=== PATIENT | male | born 1930 | race Caucasian/White ===

== ENCOUNTER 2016-10-12 19:39 | Observation (INO) | payer OTHER ==
[2016-10-12] MEDS ORDERED: NS 500 ML IV ONE (20:02)
--- NOTE | 2016-10-12 20:06 | CPEKG ---
Heart Rate: 63 RR Interval: 952 P-R Interval: 200 QRSD Interval: 94 QT Interval: 392 QTC Interval: 402 P [place]: 49 QRS [place]: 50 T Wave [place]: 33 EKG Severity - NORMAL ECG - EKG Impression: SINUS RHYTHM Electronically Signed By: Dena Gomez 12-Oct-2016 21:19:25
--- NOTE | 2016-10-12 20:07 | EDPHY ---
H & P Time Seen by Provider: 10/12/16 19:52 HPI/ROS: CHIEF COMPLAINT: Dizzy HISTORY OF PRESENT ILLNESS: Patient is an 78-year-old male with history of hypertension who presents emergency department feeling dizzy. His symptoms started approximately 3:00 p.m.. He does not feel as though the room her ground was spinning. He had a slightly unstable gait. Patient's states that he has had mild shortness of breath for the fast 1-2 days. He has had a long standing persistent cough that is not changed. He has no chest pain. No abdominal pain. No nausea or vomiting. The patient denies focal weakness or numbness. No headache or neck pain. REVIEW OF SYSTEMS: My complete review of systems is negative except as mentioned in the HPI. Patient has decreased hearing. Past Medical/Surgical History: Includes hypertension, prostate disease Social history: The patient is . He does not smoke Smoking Status: Never smoked Physical Exam: Vitals noted GENERAL: No acute distress, alert. HEENT: Eyes normal to inspection, normal pharynx, no signs of dehydration. NECK: No thyromegaly, no lymphadenopathy, supple. RESPIRATORY: Clear to auscultation bilaterally, no rales, rhonchi or wheezing. CVS: Regular rate and rhythm, no rubs, murmurs, or gallops. ABDOMEN: Soft, nontender, nondistended, no organomegaly. BACK: Normal to inspection, no CVA tenderness. SKIN: Normal color, no rash, warm, dry. No pallor. EXTREMITIES: No pedal edema, no calf tenderness, no Homans sign or cords, no joint swelling. NEURO/PSYCH: Higher functions: Alert and Oriented x3. Normal speech and cognition. Normal mood and affect. Cranial nerves: Normal as tested. Cerebellar: Normal as tested. Good finger to nose, good [id number]. Peripheral exam: Normal motor exam. Normal sensation. Constitutional: Initial Vital Signs Temperature (C) 36.4 C 10/12/16 19:43 Heart Rate 65 10/12/16 19:43 Respiratory Rate 16 10/12/16 19:43 Blood Pressure 169/92 H 10/12/16 19:43 O2 Sat (%) 94 10/12/16 19:43 O2 Delivery Mode Room Air Allergies/Adverse Reactions: Penicillins Allergy (Unknown, Verified 10/12/16 19:47) Home Medications: Medication Instructions Recorded Atorvastatin Calcium [Lipitor 10 10 mg PO DAILY 03/20/11 mg] Avodart 03/20/11 Ibuprofen 400 mg PO 03/20/11 Ibuprofen [Motrin (*)] 600 mg PO Q6PRN PRN #20 tab 03/20/11 oxyCODONE/APAP 5/325 [Percocet 1 - 2 tab PO Q4-6PRN PRN #14 tab 03/20/11 5/325 (*)] Medical Decision Making - Diagnostics Imaging Results: Imaging Impressions Head CT 10/12/16 20:03 Impression: Elderly brain with atrophy and 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 Nothing acute is identified. Results called and discussed with SURI JAEGER M.D. on 10/12/2016 at 20:50 ED Course/Re-evaluation: In the emergency department I discussed possible etiologies with the patient and his . I answered all her questions. IV was placed. Laboratory studies , EKG, chest x-ray and head CT were ordered. Patient had a normal neuro exam. His NIHSS was 0. His symptoms started at 1500. I do not feel he is a stroke alert. EKG shows normal sinus rhythm, normal rate, normal axis, normal intervals. There are no ST or T-wave abnormalities. EKG is normal as interpreted by me. IV the patient's laboratory studies. Of note he was hyponatremic with a sodium of 129. I compared this with previous values. Spin most recently a 138. It was previously in the 120s. He is mildly anemic with hematocrit of 35. Troponin was negative. Head CT: Please refer the dictated report by Dr. Ezequiel Faria. Atrophy with no acute disease. Differential Diagnosis: My differential includes but is not limited to ischemic CVA, hemorrhagic CVA, dissection, aneurysm, electrolyte abnormality, sugar abnormality, dehydration, pneumonia, ACS, acute [place], urinary tract infection - Data Points Laboratory Results: Laboratory Results 10/12/16 20:00 10/12/16 20:00 10/12/16 10/12/16 10/12/16 20:15 20:00 20:00 WBC RBC Hgb Hct MCV MCH MCHC RDW Plt Count MPV Neut % (Auto) Lymph % (Auto) [place] % (Auto) Eos % (Auto) Baso % (Auto) Nucleat RBC Rel Count Absolute Neuts (auto) Absolute Lymphs (auto) Absolute Monos (auto) Absolute Eos (auto) Absolute Basos (auto) Absolute Nucleated RBC Immature Gran % Immature Gran # PT 12.6 SEC SEC (12.0-15.0) INR 0.95 (0.83-1.16) APTT 25.9 SEC SEC (23.0-38.0) Sodium 129 mEq/L L mEq/L (134-144) Potassium 4.3 mEq/L mEq/L (3.5-5.2) Chloride 97 mEq/L mEq/L (97-110) Carbon Dioxide 22 mEq/l mEq/l (22-31) Anion Gap 10 mEq/L mEq/L (8-16) BUN 21 mg/dL mg/dL (7-23) Creatinine 1.0 mg/dL mg/dL (0.7-1.3) Estimated GFR > 60 Glucose 98 mg/dL mg/dL (70-100) Calcium 9.0 mg/dL mg/dL (8.5-10.4) Troponin I < 0.012 ng/mL ng/mL (0-0.034) Urine Color PALE YELLOW Urine Appearance CLEAR Urine pH 7.0 (5.0-7.5) Ur Specific [place] 1.008 (1.002-1.030) Urine Protein NEGATIVE (NEGATIVE) Urine Ketones NEGATIVE (NEGATIVE) Urine Blood NEGATIVE (NEGATIVE) Urine Nitrate NEGATIVE (NEGATIVE) Urine Bilirubin NEGATIVE (NEGATIVE) Urine Urobilinogen NEGATIVE EU EU (0.2-1.0) Ur Leukocyte Esterase NEGATIVE (NEGATIVE) Urine Glucose NEGATIVE (NEGATIVE) 10/12/16 20:00 WBC 8.09 10^3/uL 10^3/uL (3.80-9.50) RBC 4.03 10^6/uL L 10^6/uL (4.40-6.38) Hgb 12.4 g/dL L g/dL (13.7-17.5) Hct 35.5 % L % (40.0-51.0) MCV 88.1 fL fL (81.5-99.8) MCH 30.8 pg pg (27.9-34.1) MCHC 34.9 g/dL g/dL (32.4-36.7) RDW 11.7 % % (11.5-15.2) Plt Count 257 10^3/uL 10^3/uL (150-400) MPV 8.9 fL fL (8.7-11.7) Neut % (Auto) 62.4 % % (39.3-74.2) Lymph % (Auto) 18.8 % % (15.0-45.0) [place] % (Auto) 14.2 % H % (4.5-13.0) Eos % (Auto) 3.6 % % (0.6-7.6) Baso % (Auto) 0.5 % % (0.3-1.7) Nucleat RBC Rel Count 0.0 % % (0.0-0.2) Absolute Neuts (auto) 5.05 10^3/uL 10^3/uL (1.70-6.50) Absolute Lymphs (auto) 1.52 10^3/uL 10^3/uL (1.00-3.00) Absolute Monos (auto) 1.15 10^3/uL H 10^3/uL (0.30-0.80) Absolute Eos (auto) 0.29 10^3/uL 10^3/uL (0.03-0.40) Absolute Basos (auto) 0.04 10^3/uL 10^3/uL (0.02-0.10) Absolute Nucleated RBC 0.00 10^3/uL 10^3/uL (0-0.01) Immature Gran % 0.5 % % (0.0-1.1) Immature Gran # 0.04 10^3/uL 10^3/uL (0.00-0.10) PT INR APTT Sodium Potassium Chloride Carbon Dioxide Anion Gap BUN Creatinine Estimated GFR Glucose Calcium Troponin I Urine Color Urine Appearance Urine pH Ur Specific [place] Urine Protein Urine Ketones Urine Blood Urine Nitrate Urine Bilirubin Urine Urobilinogen Ur Leukocyte Esterase Urine Glucose Medications Given: Discontinued Medications Sodium Chloride (Ns) 500 mls @ 0 mls/hr IV ONCE ONE; Wide Open PRN Reason: Protocol Stop: 10/12/16 20:03 Last Admin: 10/12/16 20:14 Dose: 500 mls Departure - Departure Disposition: [facility] In[facility] Acute Clinical Impression: Dizziness, Hyponatremia Condition: Good Referrals: Saleem Little MD [Primary Care Provider] - As per Instructions
[2016-10-12 20:13] LABS: % IMMATURE GRANULYOCYTES 0.5 % (0.0-1.1); ABSOLUTE IMMATURE GRANULOCYTES 0.04 10^3/uL (0.00-0.10); ADD DIFF? NO; ADD MORPH? NO; ADD SCAN? NO; ATYPICAL LYMPHOCYTE FLAG 0 (0-99); FRAGMENT RBC FLAG 0 (0-99); HEMATOCRIT 35.5 % (40.0-51.0); HEMOGLOBIN 12.4 g/dL (13.7-17.5); LEFT SHIFT FLG 0 (0-99); LIPEMIA HEMOLYSIS FLAG 90 (0-99); MEAN CELL HEMOGLOBIN 30.8 pg (27.9-34.1); MEAN CELL HEMOGLOBIN CONCENTR. 34.9 g/dL (32.4-36.7); MEAN CELL VOLUME 88.1 fL (81.5-99.8); MEAN PLATELET VOLUME 8.9 fL (8.7-11.7); PLATELET CLUMPS FLAG 0 (0-99); PLATELET COUNT 257 10^3/uL (150-400); RED BLOOD CELL COUNT 4.03 10^6/uL (4.40-6.38); RED CELL DISTRIBUTION WIDTH 11.7 % (11.5-15.2)
[2016-10-12 20:26] LABS: INR 0.95 (0.83-1.16); PROTIME(PATIENT) 12.6 SEC (12.0-15.0)
[2016-10-12 20:27] LABS: APTT 25.9 SEC (23.0-38.0)
[2016-10-12 20:41] LABS: ANION GAP 10 mEq/L (8-16); CARBON DIOXIDE 22 mEq/l (22-31); CHLORIDE 97 mEq/L (97-110); GLOMERULAR FILTRATION RATE > 60; GLUCOSE 98 mg/dL (70-100); POTASSIUM 4.3 mEq/L (3.5-5.2); SODIUM 129 mEq/L (134-144)
[2016-10-12 20:43] LABS: COLOR PALE YELLOW; LEUKOCYTE ESTERASE,URINE NEGATIVE (NEGATIVE); NITRITE,URINE NEGATIVE (NEGATIVE)
[2016-10-12 20:52] LABS: TROPONIN I < 0.012 ng/mL (0-0.034)
[2016-10-12 22:07] VITALS: RESP 18
[2016-10-13] MEDS ORDERED: ONDANSETRON 4 MG/2 ML VIAL IVP PRN (00:04)
[2016-10-13] MEDS ORDERED: ACETAMINOPHEN 325 MG TAB PO PRN (00:04)
[2016-10-13] MEDS ORDERED: ONDANSETRON DISINTEGRATING 4 MG TAB PO PRN (00:04)
[2016-10-13] MEDS ORDERED: IBUPROFEN 200 MG TAB PO PRN (00:06)
--- NOTE | 2016-10-13 02:04 | GHP ---
[f rep st] HISTORY AND PHYSICAL DATE OF ADMISSION: 10/12/2016 CHIEF COMPLAINT: Mild fatigue and weakness. HISTORY OF PRESENT ILLNESS: The patient is an 86-year-old white male who, at the time of my exam ar ound 11 p.m., has no complaints. He is lying comfortably in his hospital bed and does not remember why he was brought in. He came in earlier in the evening with his with the complaint of mild fatigue and mildly unstea dy gait, although he did walk himself into the hospital. He had no acute pain and no really specifi c complaints other than some fatigue and dizziness. There was no vertigo. [facility] only significant finding was hyponatremia with a sodium level of 129. He was admitted for observation. Of note, this patient had hyponatremia with a sodium of 128 in 2014 as an outpatient. At that time, he had a little bit of a cough, and it was thought that perhaps a viral infection was the underlyin g cause of his hyponatremia. It resolved without significant intervention, and his sodium has run i n the 138 range on subsequent blood tests. PAST MEDICAL HISTORY: 1. Episode of hyponatremia a couple of years ago as outlined above. 2. BPH on medications. 3. Mild cognitive impairment for which he was started on donepezil perhaps a year or two ago. SOCIAL HISTORY: He lives at home with his . He does not smoke. He has an occasional gin and t onic but tells me he does not drink every day. REVIEW OF SYSTEMS: The patient currently denies any problems whatsoever, and his 10 system review i s completely negative. PHYSICAL EXAMINATION: GENERAL: He is a well-developed elderly man, lying comfortably in his hospit al bed. I watched him climb in and out of bed to use the bathroom partway through our visit, and he seemed quite limber and had no problem walking to and from the bathroom and no problem easily climb ing in and out of his hospital bed. He is in no distress. VITAL SIGNS: Blood pressure 164/83, hea rt rate 70, oxygen saturation 95% on room air. He is afebrile. HEENT: Eyes: Pupils are equal, ro und, and reactive to light. Conjunctivae are pink. Throat, mouth, and oropharynx are benign. NECK : Supple without adenopathy or thyromegaly. Carotids are 2+ bilaterally. LUNGS: Clear. HEART: Regular without murmur. ABDOMEN: Soft, nontender, without masses. EXTREMITIES: No edema. NEUROL OGIC: He is alert and oriented to person, place, year, and month, but does not know the exact date. He does not know the day of the week. He is unable to tell me why he came to the emergency room e [place] today. He remembers coming here because his was concerned, but he cannot remember wheth er or if there were any specific complaints. DATABASE: Chest x-ray shows some mild atelectasis but no acute findings. I reviewed the image myse lf. EKG shows normal sinus rhythm at 63 per minute and is normal. I reviewed the tracing myself. Head CT scan shows some atrophy but no acute disease. His CBC is normal except for borderline anemi a with a hemoglobin of 12.4. This is just slightly lower than previous levels which are in the mid- 13 range. His MCV is 88. His electrolytes are normal, creatinine 1.0. Urinalysis is benign with a specific gravity of 1.008. Because he had to urinate twice in about 20 or 30 minutes during my interview with him, I had a blad darvin scan done. He has a postvoid residual 350 cc. IMPRESSION: 1. Weakness. There was apparently some low-grade weakness or fatigue or dizziness at the time of p resentation to the emergency department, but he has no such complaint right now. It may be that his was more concerned than he was. This could indeed be due to the hyponatremia, but he certainl y does not appear unsteady when I watch him walk at the time of my exam this evening. I am hopeful he could be discharged back home with outpatient followup tomorrow. 2. Hyponatremia. I do not have a clear etiology for this. He does not appear to have any acute in tracerebral process or respiratory process. I am wondering if the urinary retention could be playin g a role. At this point, unless this continues to drop on retests tomorrow, I think this could be f ollowed up as an outpatient. 3. Urinary retention. This is moderate. He has been on dutasteride for some time. He himself has no complaints, but given his entire picture that includes some elevated blood pressure at this time , I am going to add tamsulosin. 4. Elevated blood pressure. His outpatient records shows his systolic pressure usually in the 130- 140 range. During this hospitalization over the last few hours, his systolic pressure has been in t he 160-170 range. We will add tamsulosin tonjude. It is possible that improved bladder emptying wo uld help his blood pressure. Tomorrow morning, I might consider a trial of terazosin or doxazosin i f blood pressure remains elevated. I would rather try this medication in the daytime where he can b e observed better, as if it does need to be tried, orthostasis is a possibility in this elderly zoran wolf. 5. Mild neurocognitive decline. He tells me he has not been taking his donepezil recently, for no specific reasons. It might be useful tomorrow to get some more information from his , who is not available for me to talk to keivn. /[id number]/MODL
[2016-10-13 04:54] LABS: % IMMATURE GRANULYOCYTES 0.5 % (0.0-1.1); ABSOLUTE IMMATURE GRANULOCYTES 0.04 10^3/uL (0.00-0.10); ADD DIFF? NO; ADD MORPH? NO; ADD SCAN? NO; ATYPICAL LYMPHOCYTE FLAG 0 (0-99); FRAGMENT RBC FLAG 0 (0-99); HEMATOCRIT 35.5 % (40.0-51.0); HEMOGLOBIN 12.2 g/dL (13.7-17.5); LEFT SHIFT FLG 0 (0-99); LIPEMIA HEMOLYSIS FLAG 90 (0-99); MEAN CELL HEMOGLOBIN 30.6 pg (27.9-34.1); MEAN CELL HEMOGLOBIN CONCENTR. 34.4 g/dL (32.4-36.7); MEAN PLATELET VOLUME 8.6 fL (8.7-11.7); PLATELET CLUMPS FLAG 0 (0-99); PLATELET COUNT 235 10^3/uL (150-400); RED BLOOD CELL COUNT 3.99 10^6/uL (4.40-6.38); RED CELL DISTRIBUTION WIDTH 11.5 % (11.5-15.2)
[2016-10-13 05:11] LABS: ALANINE AMINOTRANSFERASE 34 IU/L (21-72); ALBUMIN 3.6 g/dL (3.5-5.0); ALKALINE PHOSPHATASE 58 IU/L (38-126); ANION GAP 10 mEq/L (8-16); ASPARTATE AMINOTRANSFERASE 25 IU/L (17-59); BILIRUBIN,TOTAL 0.8 mg/dL (0.1-1.4); CALCIUM 9.3 mg/dL (8.5-10.4); CARBON DIOXIDE 22 mEq/l (22-31); CHLORIDE 101 mEq/L (97-110); CREATININE 0.9 mg/dL (0.7-1.3); GLOMERULAR FILTRATION RATE > 60; GLUCOSE 99 mg/dL (70-100); SODIUM 133 mEq/L (134-144); TOTAL PROTEIN 6.2 g/dL (6.3-8.2)
[2016-10-13] MEDS: TAMSULOSIN HCL 0.4 MG CAP PO SCH ×2 (06:11→08:38)
[2016-10-13 07:28] VITALS: BP 153/88; PULSE 68; TEMP 97.1; O2SAT 94
[2016-10-13] MEDS ORDERED: CHOLECALCIFEROL VIT D3 1,000 UNITS TAB PO SCH (09:00)
[2016-10-13] MEDS ORDERED: ASPIRIN EC 81 MG TAB PO SCH (09:00)
[2016-10-13] MEDS ORDERED: CALCIUM CARBONATE 500 MG TAB PO SCH (09:00)
[2016-10-13] MEDS ORDERED: MULTIVITAMINS 1 EACH TAB PO SCH (09:00)
[2016-10-13] MEDS ORDERED: ASCORBIC ACID 500 MG TAB PO SCH (09:00)
--- NOTE | 2016-10-13 14:25 | GDS ---
[f rep st] DISCHARGE SUMMARY DISCHARGE DIAGNOSES: 1. Weakness and hyponatremia, most likely due to dehydration. 2. Urinary retention. 3. Elevated blood pressure. CONSULTANTS: None. HOSPITAL COURSE AND STAY: By problem: Weakness and dehydration in the setting of hyponatremia: Th is patient presented with a BUN of 21, and a creatinine of 1, and a sodium of 129. He was treated w ith IV fluids. On day of discharge, he is feeling better. His BUN is down to 14, with a creatinine of 0.9. He was noted to have some urinary retention, and was started on Flomax, in addition to his home dose of Avodart. On day of discharge, he tells me he feels well and would like to go home. PHYSICAL EXAM: VITAL SIGNS: On day of discharge, blood pressure 153/88, pulse of 68, respiratory r ate 18, O2 sat 94% on room air. Temperature afebrile. GENERAL: In no acute distress. HEART: S1, S2. LUNGS: Clear. ABDOMEN: Soft. EXTREMITIES: No edema. PERTINENT LABS AND STUDIES: Head CT done 10/12/2016, refer to report. Chest x-ray done 10/12/2016 showed atelectasis and borderline cardiac enlargement without focal pulmonary consolidation. DISCHARGE MEDICATIONS: Please refer to discharge medication reconciliation in [facility] for details. Below is a preliminary list. New medications on hospital discharge: Flomax 0.4 mg p.o. daily. DISCHARGE INSTRUCTIONS: The patient will be discharged from the hospital where he should follow up with his primary care provider in the next week for routine blood pressure monitoring. He was encou raged to maintain adequate oral hydration. He is also encouraged to follow up with urologist given his urinary retention. Once again, he was started on Flomax during this hospital. Copy requested to: PCP /[id number]/MODL
[2016-10-13] MEDS ORDERED: ATORVASTATIN CALCIUM 10 MG TAB PO SCH (21:00)
[2016-10-13] MEDS ORDERED: DUTASTERIDE 0.5 MG CAP PO SCH (21:00)
== END 2016-10-13 10:57 | disposition home or self-care (01) ==
LOC: F3E 22:00
PROVIDERS: ADMIT Internal Medicine; ATTEND Family Medicine
DX: E87.1 Hypo-osmolality and hyponatremia (principal); R53.1 Weakness; R42 Dizziness and giddiness; N40.1 Benign prostatic hyperplasia with lower urinary tract symptoms; R33.9 Retention of urine, unspecified; R03.0 Elevated blood-pressure reading, without diagnosis of hypertension; R41.89 Other symptoms and signs involving cognitive functions and awareness
CPT/HCPCS: 70450; 71020; 93005; 96360; 99285; G0378

== ENCOUNTER 2016-10-16 10:11 | Observation (INO) | payer OTHER ==
--- NOTE | 2016-10-16 11:04 | EDPHY ---
H & P Stated Complaint: weakness/hyponatremia/dc from hospital friday/saw pcp friday Time Seen by Provider: 10/16/16 11:02 HPI/ROS: CHIEF COMPLAINT: Weakness, fatigue. HISTORY OF PRESENT ILLNESS: The patient is an 86-year-old male who presents with fatigue and weakness for the past 3 days. He was discharged from the hospital 3 days ago after a one night stay for weakness secondary to hyponatremia that resolved well. He denies fever, chills, chest pain, shortness of breath, palpitations, vomiting, diarrhea, urinary complaints, headache, lightheadedness, peripheral edema. Patient reports that he woke up today feeling terrible. REVIEW OF SYSTEMS: Aside from elements discussed in the HPI, a comprehensive 10-point review of systems was reviewed and is negative. PAST MEDICAL HISTORY: BPH. SOCIAL HISTORY: Lies at home with his , nonsmoker, former engineering manager electronics. VITAL SIGNS: Reviewed by me GENERAL: Well-developed, well-nourished, resting comfortably in no respiratory distress. HEENT: Atraumatic. Eyes: No icterus, no injection. Mouth: moist mucous membranes. No erythema or lesions. Neck: supple with no adenopathy. LUNGS: Clear to auscultation bilaterally, no wheezes, rhonchi or rales. CARDIAC: Regular rate and rhythm, no rubs, murmurs or gallops. ABDOMEN: Soft, nontender, nondistended, bowel sounds normal. BACK: No CVA tenderness. EXTREMITIES: No trauma. No edema. Range of motion is normal throughout. NEURO: Alert and oriented, grossly nonfocal. SKIN: Warm and dry, no rash. PSYCHIATRIC: Normal mentation, no agitation. Portions of this note were transcribed by a medical records manager. I personally performed a history, physical exam, medical decision making, and confirmed accuracy of information the transcribed note. Source: Patient Exam Limitations: No limitations - Personal History Current Tetanus/Diphtheria Vaccine: Yes - Medical/Surgical History Hx Asthma: No Hx Chronic Respiratory Disease: No Hx Diabetes: No Hx Cardiac Disease: No Hx Renal Disease: No Hx Cirrhosis: No Hx Alcoholism: No Hx HIV/AIDS: No Hx Splenectomy or Spleen Trauma: No Other PMH: high cholesterol, prostate, - Social History Smoking Status: Never smoked Constitutional: Initial Vital Signs Temperature (C) 36.5 C 10/16/16 10:21 Heart Rate 64 10/16/16 10:21 Respiratory Rate 18 10/16/16 10:21 Blood Pressure 155/94 H 10/16/16 10:21 O2 Sat (%) 96 10/16/16 10:21 O2 Delivery Mode Room Air Allergies/Adverse Reactions: Penicillins Allergy (Unknown, Verified 10/16/16 10:19) Home Medications: Medication Instructions Recorded Atorvastatin Calcium [Lipitor 10 5 mg PO DAILY 10/16/16 mg (*)] Dutasteride [Dutasteride] 0.5 mg PO HS 10/16/16 Medical Decision Making - Diagnostics EKG Interpretation: 12-LEAD EKG: Please see the full report in [facility]. My interpretation: Normal sinus rhythm ED Course/Re-evaluation: 86-year-old male presents with fatigue and weakness, similar to 4 days ago. At that time he was found to be hyponatremic and stayed one night in the hospital. He reports feeling overall weak and fatigued. His exam is normal. We will check basic blood work. Labs are remarkable for hyponatremia at a level of 128. Troponin is negative. Urine studies for urine sodium, urine chloride, and urine sed rate were ordered. Plan for admission for weakness, hyponatremia. 1227: Consulted with hospitalist. Dr. Britt accepts admission. Differential Diagnosis: Differential diagnosis of the patient's weakness was considered including but not limited to electrolyte abnormality, anemia, cardiac ischemia, CVA, spinal cord abnormality, and infectious causes. Consult/Admit Bed Type: Dr. Lorenza Jones - Data Points Laboratory Results: Laboratory Results 10/16/16 11:20 10/16/16 11:20 10/16/16 10/16/16 10/16/16 11:20 11:20 11:20 WBC 8.96 10^3/uL 10^3/uL (3.80-9.50) RBC 4.49 10^6/uL 10^6/uL (4.40-6.38) Hgb 14.0 g/dL g/dL (13.7-17.5) Hct 39.2 % L % (40.0-51.0) MCV 87.3 fL fL (81.5-99.8) MCH 31.2 pg pg (27.9-34.1) MCHC 35.7 g/dL g/dL (32.4-36.7) RDW 11.5 % % (11.5-15.2) Plt Count 274 10^3/uL 10^3/uL (150-400) MPV 8.5 fL L fL (8.7-11.7) Neut % (Auto) 70.4 % % (39.3-74.2) Lymph % (Auto) 13.6 % L % (15.0-45.0) [place] % (Auto) 12.8 % % (4.5-13.0) Eos % (Auto) 2.0 % % (0.6-7.6) Baso % (Auto) 0.6 % % (0.3-1.7) Nucleat RBC Rel Count 0.0 % % (0.0-0.2) Absolute Neuts (auto) 6.31 10^3/uL 10^3/uL (1.70-6.50) Absolute Lymphs (auto) 1.22 10^3/uL 10^3/uL (1.00-3.00) Absolute Monos (auto) 1.15 10^3/uL H 10^3/uL (0.30-0.80) Absolute Eos (auto) 0.18 10^3/uL 10^3/uL (0.03-0.40) Absolute Basos (auto) 0.05 10^3/uL 10^3/uL (0.02-0.10) Absolute Nucleated RBC 0.00 10^3/uL 10^3/uL (0-0.01) Immature Gran % 0.6 % % (0.0-1.1) Immature Gran # 0.05 10^3/uL 10^3/uL (0.00-0.10) Sodium 128 mEq/L L mEq/L (134-144) Potassium 4.2 mEq/L mEq/L (3.5-5.2) Chloride 93 mEq/L L mEq/L (97-110) Carbon Dioxide 24 mEq/l mEq/l (22-31) Anion Gap 11 mEq/L mEq/L (8-16) BUN 14 mg/dL mg/dL (7-23) Creatinine 1.0 mg/dL mg/dL (0.7-1.3) Estimated GFR > 60 Glucose 92 mg/dL mg/dL (70-100) Calcium 9.7 mg/dL mg/dL (8.5-10.4) Troponin I < 0.012 ng/mL ng/mL (0-0.034) Cortisol AM Sample 13.5 ug/dL ug/dL (4.5-22.7) Departure - Departure Disposition: [facility] Inpatient Acute Clinical Impression: Hyponatremia, Weakness Condition: Fair Report Scribed for: Jacquelin Carrasco Report Scribed by: Ayan Ellis Date of Report: 10/16/16 Time of Report: 11:22
[2016-10-16 11:30] LABS: % IMMATURE GRANULYOCYTES 0.6 % (0.0-1.1); ABSOLUTE IMMATURE GRANULOCYTES 0.05 10^3/uL (0.00-0.10); ADD DIFF? NO; ADD MORPH? NO; ADD SCAN? NO; ATYPICAL LYMPHOCYTE FLAG 0 (0-99); FRAGMENT RBC FLAG 0 (0-99); HEMATOCRIT 39.2 % (40.0-51.0); LEFT SHIFT FLG 0 (0-99); LIPEMIA HEMOLYSIS FLAG 90 (0-99); MEAN CELL HEMOGLOBIN 31.2 pg (27.9-34.1); MEAN CELL HEMOGLOBIN CONCENTR. 35.7 g/dL (32.4-36.7); MEAN CELL VOLUME 87.3 fL (81.5-99.8); MEAN PLATELET VOLUME 8.5 fL (8.7-11.7); PLATELET CLUMPS FLAG 30 (0-99); PLATELET COUNT 274 10^3/uL (150-400); RED BLOOD CELL COUNT 4.49 10^6/uL (4.40-6.38); RED CELL DISTRIBUTION WIDTH 11.5 % (11.5-15.2)
[2016-10-16 11:38] LABS: ANION GAP 11 mEq/L (8-16); CALCIUM 9.7 mg/dL (8.5-10.4); CARBON DIOXIDE 24 mEq/l (22-31); CHLORIDE 93 mEq/L (97-110); GLOMERULAR FILTRATION RATE > 60; GLUCOSE 92 mg/dL (70-100); POTASSIUM 4.2 mEq/L (3.5-5.2); SODIUM 128 mEq/L (134-144)
[2016-10-16 11:50] LABS: TROPONIN I < 0.012 ng/mL (0-0.034)
--- NOTE | 2016-10-16 12:36 | CPEKG ---
Heart Rate: 64 RR Interval: 938 P-R Interval: 200 QRSD Interval: 96 QT Interval: 388 QTC Interval: 401 P [place]: 48 QRS [place]: 53 T Wave [place]: 29 EKG Severity - NORMAL ECG - EKG Impression: SINUS RHYTHM Electronically Signed By: Jacquelin Carrasco 16-Oct-2016 18:14:50
--- NOTE | 2016-10-16 14:41 | GHP ---
[f rep st] HISTORY AND PHYSICAL DATE OF ADMISSION: 10/16/2016 CHIEF COMPLAINT: Weakness and fatigue. HISTORY OF PRESENT ILLNESS: This is an 86-year-old male, who was admitted to [facility] on 10/12/2016, and ultimately discharged on the , where he presented with weakness and was fo und to be mildly hyponatremic that was thought to be due to dehydration. During that hospital stay, he also had some urinary retention. He presented with a serum sodium of 129, which increased to 13 3 on the following day. Today he presented to the emergency department with persistent weakness and fatigue. He says he has been eating normally. He has been drinking what he describes as "a lot of water." He denies any fevers or chills. He denies any chest pain. He denies any nausea, vomiting , or diarrhea. He denies any numbness or weakness. He has no real localizing symptoms. PAST MEDICAL HISTORY: 1. BPH. 2. Hyponatremia. 3. Mild cognitive impairment. HOME MEDICATIONS: Reviewed. Refer to [facility] for details. ALLERGIES: Penicillin. SOCIAL HISTORY: The patient lives with his independently. He does not smoke. He drinks alcoh ol occasionally. He denies any illicit drug use. FAMILY HISTORY: Reviewed and noncontributory. REVIEW OF SYSTEMS: Comprehensive 10-point review of systems was done and is negative, except for as mentioned in the HPI. PHYSICAL EXAM: VITAL SIGNS: Blood pressure 168/81, pulse 62, respiratory rate 18, O2 saturation 92 % on room air. Temperature afebrile. GENERAL: No acute distress. HEART: S1, S2. LUNGS: Clear. No wheezes, rales, or rhonchi. ABDOMEN: Soft, nontender, nondistended. No guarding or rebound t enderness. Normoactive bowel sounds. EXTREMITIES: No clubbing or cyanosis. NEURO: Cranial nerve s 2-12 grossly intact. No focal motor or sensory deficits. Face is symmetric. Moves all extremiti es. SKIN: Clear, no rashes. Normal turgor. DIAGNOSTICS: EKG which I visualized and personally interpreted, shows sinus rhythm, rate 64 beats p er minute, with no acute ischemic changes. WBC is 8.9, hemoglobin 14, hematocrit 39.2, platelets 27 4. Sodium 128, potassium 4.2, chloride 93, BUN 14, creatinine 1, glucose 97, troponin was less than 0.012. ASSESSMENT AND PLAN: This is an 86-year-old male who lives independently with: 1. Weakness and fatigue, unclear etiology, possibly due to hyponatremia, but I am not sure. 2. Mild hyponatremia. 3. Recent history of urinary retention due to BPH. PLAN: 1. Place on observation. 2. Obtain urine sodium and osmolality. We will also obtain a TSH and cortisol level in the morning . 3. Monitor for urinary retention. /[id number]/MODL
[2016-10-16] MEDS ORDERED: DUTASTERIDE 0.5 MG CAP PO SCH (21:00)
[2016-10-16] MEDS ORDERED: MELATONIN 3 MG TAB PO SCH (21:00)
[2016-10-17 05:50] LABS: ANION GAP 8 mEq/L (8-16); CALCIUM 9.8 mg/dL (8.5-10.4); CARBON DIOXIDE 21 mEq/l (22-31); CHLORIDE 98 mEq/L (97-110); CREATININE 0.9 mg/dL (0.7-1.3); GLOMERULAR FILTRATION RATE > 60; GLUCOSE 89 mg/dL (70-100); POTASSIUM 4.4 mEq/L (3.5-5.2); SODIUM 127 mEq/L (134-144)
[2016-10-17 06:20] LABS: CORTISOL-AM 15.3 ug/dL (4.5-22.7)
[2016-10-17] MEDS ORDERED: ATORVASTATIN CALCIUM 10 MG TAB PO SCH (09:00)
[2016-10-17 11:50] VITALS: BP 153/89; PULSE 95; RESP 14; TEMP 97.6; O2SAT 96
--- NOTE | 2016-10-17 12:28 | GDS ---
[f rep st] DISCHARGE SUMMARY DISCHARGE DIAGNOSES: 1. Fatigue and dizziness of uncertain etiology. 2. Hyponatremia, consistent with syndrome of inappropriate antidiuretic hormone secretion. 3. Mild urinary retention. 4. Mild cognitive impairment. HISTORY: This is an 86-year-old male who was admitted just 4 days ago with symptoms of dizziness an d fatigue. He was discharged the next day. He was feeling a little bit better. However, since his discharge he continued to feel lethargic and dizzy. He was readmitted for this. HOSPITAL COURSE: The patient's sodium was on the low side at 147. His postvoid residuals are only about 200 cc. His UA last hospitalization did not show urinary tract infection. EKG was normal. H e denied any heart palpitations. He denies any infectious symptoms. We did not really do anything for him overnight, and this morning he is feeling back to normal and was adamant that he wanted to g o home. At this point, this is probably reasonable as I am not sure we would do anything else other than maybe monitor for arrhythmia here in the hospital. He has been instructed to continue a 1500 cc/day fluid restriction and will add salt tablets to his regimen to help keep his sodium up. DISPOSITION: Home. DISCHARGE MEDICATIONS: He is to resume his home medicines. In addition, will be given sodium chlor alec. FOLLOWUP INSTRUCTIONS: He is instructed to follow up with his primary care doctor within 1 week. TIME SPENT: Greater than 30 minutes was spent on discharge. /[id number]/MODL
== END 2016-10-17 12:05 | disposition home or self-care (01) ==
LOC: F3E 13:39
PROVIDERS: ADMIT Family Medicine; ATTEND Family Medicine
DX: R53.83 Other fatigue (principal); R42 Dizziness and giddiness; E87.1 Hypo-osmolality and hyponatremia; R33.9 Retention of urine, unspecified; G31.84 Mild cognitive impairment of uncertain or unknown etiology
CPT/HCPCS: 93005; 97161; 97165; 99285; G0378; G8978; G8979; G8980; G8987; G8988; G8989

== ENCOUNTER → 2016-10-28 | Outpatient (CLI) | payer OTHER ==
[~2016-10-28] MED LIST: IOPAMIDOL (ISOVUE-300) 100 ML BTL ONE
== END ==
LOC: FIMAGING 14:22
PROVIDERS: ATTEND Internal Medicine
DX: R93.5 Abnormal findings on diagnostic imaging of other abdominal regions, including retroperitoneum (principal); K44.9 Diaphragmatic hernia without obstruction or gangrene; E87.1 Hypo-osmolality and hyponatremia; R63.0 Anorexia
CPT/HCPCS: 74177; Q9967

== ENCOUNTER → 2016-11-01 | Outpatient (CLI) | payer OTHER | LOC: FIMAGING 14:04 | PROVIDERS: ATTEND Internal Medicine | DX: I25.10 Atherosclerotic heart disease of native coronary artery without angina pectoris (principal); E87.1 Hypo-osmolality and hyponatremia ==

== ENCOUNTER → 2017-07-15 | Outpatient (CLI) | payer OTHER | LOC: CIMAGING 11:13 | PROVIDERS: ATTEND Internal Medicine | DX: J18.9 Pneumonia, unspecified organism (principal); J84.9 Interstitial pulmonary disease, unspecified | CPT/HCPCS: 71046-PO ==

== ENCOUNTER → 2017-07-31 | Outpatient (CLI) | payer OTHER | LOC: CIMAGING 11:26 | PROVIDERS: ATTEND Internal Medicine | DX: J98.4 Other disorders of lung (principal) | CPT/HCPCS: 71046-PO ==